=== PATIENT | female | born 1960 | race Two or more races ===

== ENCOUNTER 2016-12-16 11:34 | Emergency (ER) | payer OTHER ==
[~2016-12-16] VITALS: Ht 165.1 cm; Wt 68.0 kg
[~2016-12-16 11:34] MED LIST: LORA1TAB82 PO; NAPR220T66 PO; SERT50TA12 PO
--- NOTE | 2016-12-16 11:36 | NUR ---
PT AMBULATORY TO ER BED 08. CAME IN W/ MULTIPLE COMPLAINTS. STARTED HAVING PRESSURE LIKE CHEST PAIN THAT STARTED THIS MORNING. ALSO C/O BILAT FLANK PAIN W/ URINARY URGENCY. HX OF KIDNEY STONE. ALSO C/O L FOT PAIN. NO TRAUMA. GOWNED AND PLACED ON MONITOR. AWAITING MD BILLINGSLEY.
--- NOTE | 2016-12-16 11:51 | NUR ---
DR EPPERSON AT BEDSIDE FOR EVAL.
[2016-12-16 12:10] LABS: APPEARANCE,URINE Clear (CLEAR); BILIRUBIN,URINE Negative (NEGATIVE); BLOOD, URINE Trace-intact Ery/uL (NEGATIVE); COLOR,URINE Light yellow (YELLOW); KETONES,URINE Negative (NEGATIVE); LEUKOCYTE ESTERASE ,URINE Negative (NEGATIVE); NITRITE, URINE Negative (NEGATIVE); PH,URINE 8.5 (5.0-8.0); PROTEIN,URINE Negative (NEGATIVE); UGLUCOSE Negative (NEGATIVE); UROBILINOGEN,URINE 0.2 EU/dL (0.2)
--- NOTE | 2016-12-16 12:17 | NUR ---
IV LINE STARTED BLOOD DRAWN AND DENT TO LAB.
[2016-12-16 12:19] LABS: BACTERIA,URINE None seen /HPF (None Seen); SQUAMOUS EPITHELIAL CELL,UR Few /HPF (None Seen); WBC,URINE 0-3 /HPF (0-3)
[2016-12-16 12:22] LABS: BASOPHILS % (AUTO) 0.6 % (0.0-2.0); EOSINOPHILS # (AUTO) 0.1 /CMM (0.0-0.7); EOSINOPHILS % (AUTO) 1.7 % (0.0-6.0); HEMATOCRIT 37 % (33-45); HEMOGLOBIN 12.8 g/dL (11.5-14.8); LYMPHOCYTES # (AUTO) 2.3 /CMM (0.8-4.8); LYMPHOCYTES % (AUTO) 39.4 % (20.0-44.0); MEAN CORPUSCULAR HEMOGLOBIN 30 PG (26.0-33.0); MEAN CORPUSCULAR HGB CONC 34 g/dl (31.0-36.0); MEAN CORPUSCULAR VOLUME 86 fL (82-100); MONOCYTES # (AUTO) 0.3 /CMM (0.1-1.30); MONOCYTES % (AUTO) 5.9 % (2.0-12.0); NEUTROPHILS # (AUTO) 3.1 /CMM (1.8-8.9); NEUTROPHILS % (AUTO) 52.4 % (43.0-81.0); PLATELET COUNT (AUTO) 274 /CMM (150-450); RED BLOOD CELL COUNT(AUTO) 4.33 MIL/uL (4.0-5.2); WHITE BLOOD COUNT (AUTO) 5.8 K/uL (4.3-11.0)
[2016-12-16 12:33] LABS: CALCIUM, SERUM 8.9 mg/dL (8.5-10.1); CARBON DIOXIDE 30 mmol/L (21-32); CHLORIDE 105 mmol/L (98-107); CREATININE 0.6 mg/dL (0.6-1.3); GLUCOSE 95 mg/dL (74-106); POTASSIUM 3.7 mmol/L (3.5-5.1); SODIUM SERUM 139 mmol/L (136-145); UREA NITROGEN, BLOOD 8 mg/dL (7-18)
[2016-12-16 12:35] LABS: INR 1.01 (0.87-1.13); PROTHROMBIN TIME 10.5 SECS (9.5-12.7)
[2016-12-16 12:41] LABS: TROPONIN I < 0.017 ng/mL (0.00-0.056)
[2016-12-16 12:46] LABS: ALANINE AMINOTRANSFERASE 24 U/L (12-78); ALBUMIN 3.8 g/dL (3.4-5.0); ALKALINE PHOSPHATASE 48 U/L (46-116); ASPARTATE AMINOTRANSFERASE 18 U/L (15-37); B-TYPE NATRIURETIC PEPTIDE 76 PG/ML (0-125); BILIRUBIN,DIRECT 0.1 mg/dL (0.0-0.2); BILIRUBIN,TOTAL 0.4 mg/dL (0.2-1.0)
[2016-12-16] MEDS ORDERED: KETOROLAC TROMETHAMINE INJ 30 MG/ML VIAL ONE (13:30)
[2016-12-16] MEDS ORDERED: KETOROLAC TROMETHAMINE INJ 30 MG/ML VIAL IV ONE (13:30)
--- NOTE | 2016-12-16 13:45 | NUR ---
U/S TECH AT BEDSIDE FOR KIDNEY ULTRASOUND.
[2016-12-16 13:49] LABS: D-DIMER 0.32 mg/L(FEU (0.17-0.50)
--- NOTE | 2016-12-16 14:30 | NUR ---
IV removed. Catheter intact and site benign. Pressure and 4x4 applied to site. No bleeding noted.
--- NOTE | 2016-12-16 14:38 | NUR ---
PT. VERBALIZED UNDERSTANDING OF AFTERCARE INSTRUCTIONS.Patient discharged to home in stable condition. Written and verbal after care instructions given. Patient verbalizes understanding of instruction.
[2016-12-16 14:53] VITALS: BP 126/77
== END 2016-12-16 14:55 | disposition home or self-care (01) ==
LOC: ER 11:34
DX: R07.89 Other chest pain (principal); R10.9 Unspecified abdominal pain; F32.9 Major depressive disorder, single episode, unspecified; Z88.0 Allergy status to penicillin
CPT/HCPCS: 36415; 71010-TC; 76770-TC; 80048-TC; 80076-TC; 81000-TC; 83880; 84484-TC; 85025-TC; 85378-TC; 85730-TC; A4606; J1885; Z7610